=== PATIENT | male | born 1990 | race African-American/Black ===

== ENCOUNTER 2018-08-23 10:47 | Emergency (ER) | payer SELFPAY ==
[2018-08-23 12:30] LABS: HBSAB Concentration 0.06 mIU/mL; HIV (1/2) Antibody/Antigen Non-Reactive (NonReactive); HIV 1/2 INDEX 0.17 S/CO (<1.00); Hep B Surf AB Non-Reactive (NonReactive); Hep C IgG Ab Non-Reactive (NonReactive); Hep C Index 0.28 S/CO (0-0.79)
== END 2018-08-23 12:12 | disposition home or self-care (01) ==
LOC: ERS 10:47
DX: Z77.21 Contact with and (suspected) exposure to potentially hazardous body fluids (principal)
CPT/HCPCS: 36415; 86706; 86803; 87389; 99283